=== PATIENT | female | born 1955 | race Two or more races ===

== ENCOUNTER 2017-03-14 01:06 | Inpatient (IN) | payer MEDICAID ==
[~2017-03-14] VITALS: Ht 157.5 cm; Wt 72.6 kg
[2017-03-14] MEDS ORDERED: ONDANSETRON 4 MG/2 ML VIAL IV ONE (01:45)
[2017-03-14] MEDS ORDERED: ASPIRIN 81 MG TAB.CHEW PO ONE (01:45)
[2017-03-14] MEDS ORDERED: MORPHINE SULFATE 2 MG/1 ML DISP.SYRIN IV ONE (01:45)
[2017-03-14] MEDS ORDERED: MORPHINE SULFATE 4 MG/1 ML DISP.SYRIN ONE (01:49)
[2017-03-14] MEDS ORDERED: ONDANSETRON 4 MG/2 ML VIAL ONE (01:49)
[2017-03-14 01:52] LABS: BASOPHILS # (AUTO) 0.2 K/uL (0.0-8.0); BASOPHILS % (AUTO) 1.2 % (0.0-2.0); EOSINOPHILS # (AUTO) 0.3 K/uL (0.0-0.7); EOSINOPHILS % (AUTO) 2.3 % (0.0-7.0); HEMATOCRIT 42.5 % (37-47); HEMOGLOBIN 14.5 G/DL (12.0-16.0); LYMPHOCYTES # (AUTO) 2.9 K/UL (0.8-4.8); LYMPHOCYTES % (AUTO) 23.2 % (20.5-51.5); MEAN CORPUSCULAR HEMOGLOBIN 31.1 UUG (27.0-31.0); MEAN CORPUSCULAR HGB CONC 34 g/dL (32.0-37.0); MEAN CORPUSCULAR VOLUME 91.1 FL (81.0-99.0); MONOCYTES # (AUTO) 0.9 K/UL (0.1-1.30); MONOCYTES % (AUTO) 6.8 % (0.0-11.0); NEUTROPHILS # (AUTO) 8.4 K/UL (1.8-8.9); NEUTROPHILS % (AUTO) 66.5 % (38.5-71.5); PLATELET COUNT (AUTO) 349 K/UL (150-450); RED BLOOD CELL COUNT(AUTO) 4.67 MIL/UL (4.2-5.4); WHITE BLOOD COUNT (AUTO) 12.7 K/UL (4.0-11.2)
[2017-03-14 02:01] LABS: CREATININE 0.9 mg/dL (0.6-1.3); POTASSIUM 3.9 mmol/L (3.5-5.1)
[2017-03-14] MEDS ORDERED: ASPIRIN 81 MG TAB.CHEW ONE (02:01)
[2017-03-14 02:13] LABS: BILIRUBIN,DIRECT 0.1 mg/dL (0.0-0.2); BILIRUBIN,TOTAL 0.4 mg/dL (0.2-1.0); TOTAL PROTEIN, SERUM 8.3 g/dL (6.4-8.2)
[2017-03-14] MEDS ORDERED: AMLO10TA4 PO (02:19)
--- NOTE | 2017-03-14 02:19 | NUR ---
Patient and family member unable to recall home medication at this time. Family will provide medication in AM
--- NOTE | 2017-03-14 03:17 | NUR ---
Per ER MD, Dr Clay, patient is not stable for transfer to [facility] facility [facility]. Jana Coppola notified of issue.
--- NOTE | 2017-03-14 03:20 | NUR ---
AURELIANO BANKS on the phone with Nii Gray NP from [facility].
[2017-03-14] MEDS ORDERED: HYDROCODONE/APAP 5-325MG TABLET PO PRN (03:30)
[2017-03-14] MEDS ORDERED: ACETAMINOPHEN 325 MG TABLET PO PRN (03:30)
[2017-03-14] MEDS ORDERED: MAGNESIUM HYDROXIDE 30 ML LIQUID UDC PO PRN (03:30)
[2017-03-14] MEDS ORDERED: ONDANSETRON 4 MG/2 ML VIAL IV PRN (03:30)
[2017-03-14] MEDS ORDERED: Z GUARD REMEDY PASTE 57 GM TUBE TOP PRN (03:30)
--- NOTE | 2017-03-14 03:41 | NUR ---
Report given to nibbler operator Randa @ 0325. Patient accepted by Nii Gray NP.Oliver Cortes is [facility] PM covering .
[2017-03-14] MEDS ORDERED: MORPHINE SULFATE 2 MG/1 ML DISP.SYRIN IV PRN (03:45)
--- NOTE | 2017-03-14 03:49 | NUR ---
Pt. admitted to Telemetry , under care of Nii Gray NP/Oliver BANKS. Dx: Hypertensive Encephalopathy.Belongs List completed
--- NOTE | 2017-03-14 03:50 | NUR ---
RECEIVED PATIENT FROM ER VIA WHEELCHAIR. FAMILY AT BEDSIDE. USHERED TO ROOM AND PLACED COMFORTABLY ON THE BED. BELONGINGS LIST COMPLETED. TELE LEADS APPLIED. TELE SR AT 70'S. V/S TAKEN WNL. NO ACUTE DISTRESS NOTED. ABLE TO PROVIDE HX WITH NEPHEW AT BEDSIDE. BODY ASSESSMENT DONE. COMPLAINTS OF H/A'S 01/21. WILL REVIEW MEDICATIONS ORDERED. WILL ADMINISTER ORDERED. SAFETY INITIATED. CALL LIGHT WITHIN REACH. INSTRUCTED HOE TO USE CALL LIGHT WHEN IN NEED OF ASSISTANCE. WILL CONTINUE TO MONITOR.
[2017-03-14 04:42] VITALS: BP 151/83
[2017-03-14 05:08] LABS: *BILIRUBIN,URIN NEGATIVE (NEGATIVE); *BLOOD, URINE NEGATIVE (NEGATIVE); *CLARITY,URINE CLEAR (CLEAR); *COLOR,URINE STRAW (YELLOW); *KETONES,URINE NEGATIVE (NEGATIVE); *PROTEIN,URINE NEGATIVE (NEGATIVE); *UROBILINOGEN,URINE 0.2 E.U./dl (NORMAL); LEUKOCYTE ESTERASE ,URINE NEGATIVE (NEGATIVE); NITRITE, URINE NEGATIVE (NEGATIVE); UGLUCOSE NEGATIVE (NEGATIVE)
[2017-03-14 05:14] LABS: BACTERIA,URINE FEW /HPF (NONE SEEN); RBC,URINE 0-3 /HPF (0-3); SQUAMOUS EPITHELIAL CELL,UR FEW /HPF (NONE SEEN); WBC,URINE 0-3 /HPF (0-3)
--- NOTE | 2017-03-14 06:18 | NUR ---
NO CHANGES T/O SHIFT. SAFETY AND COMFORT MEASURES MAINTAINED T/O SHIFT. ALL NEEDS MET.
--- NOTE | 2017-03-14 07:21 | NUR ---
TEXTED DR. SANDRA FOR MRI APPROVAL.
[2017-03-14] MEDS ORDERED: AMLODIPINE 10 MG TABLET PO SCH (09:00)
--- NOTE | 2017-03-14 10:00 | NUR ---
PATIENT SEEN AND EXAMINED BY DR COOLEY WITH ORDERS PATIENT IS FOR MRI TODAY.
--- NOTE | 2017-03-14 10:30 | NUR ---
PER RAY PATIENT IS SCHEDULED FOR MRI AT 1130 TODAY SO PATIENT NEEDED TO FILL OUT THE MRI QUESTIONARE AND SEE THAT SHE IS NOT AFRAID OF SMALL SPACES.PATIENT STATED THAT SHE DOES NOT WANT TO GO BECAUSE SHE IS AFRAID OF COMPACT SPACES SO RAY AT THE MRI NOTIFIED AND LENA BAILON HERE AND AWARE.
--- NOTE | 2017-03-14 10:42 | NUR ---
PATIENT NOW STATED THAT SHE WILL GO FOR THE MRI AFTER SHE SPOKE WITH HER DAUGHTER OVER THE PHONE.SO RAY FROM THE MRI CALLED BY THE SITE SAFETY COORDINATOR AND THE MED RESPONSE AWARE THAT PATIENT IS SCHEDULED FOR 1130 AM TODAY.
[2017-03-14 11:05] LABS: BASOPHILS # (AUTO) 0.1 K/uL (0.0-8.0); BASOPHILS % (AUTO) 0.7 % (0.0-2.0); EOSINOPHILS # (AUTO) 0.2 K/uL (0.0-0.7); EOSINOPHILS % (AUTO) 1.6 % (0.0-7.0); HEMATOCRIT 44.7 % (37-47); LYMPHOCYTES % (AUTO) 15.8 % (20.5-51.5); MEAN CORPUSCULAR HEMOGLOBIN 30.5 UUG (27.0-31.0); MEAN CORPUSCULAR HGB CONC 34 g/dL (32.0-37.0); MEAN CORPUSCULAR VOLUME 91.1 FL (81.0-99.0); MONOCYTES # (AUTO) 0.6 K/UL (0.1-1.30); MONOCYTES % (AUTO) 4.7 % (0.0-11.0); NEUTROPHILS # (AUTO) 9.9 K/UL (1.8-8.9); NEUTROPHILS % (AUTO) 77.2 % (38.5-71.5); PLATELET COUNT (AUTO) 367 K/UL (150-450); RED BLOOD CELL COUNT(AUTO) 4.91 MIL/UL (4.2-5.4); WHITE BLOOD COUNT (AUTO) 12.8 K/UL (4.0-11.2)
[2017-03-14] MEDS ORDERED: LORAZEPAM 2 MG/1 ML VIAL IV ONE (11:15)
[2017-03-14 11:25] LABS: BILIRUBIN,TOTAL 0.5 mg/dL (0.2-1.0); MAGNESIUM 2.5 mg/dL (1.8-2.4); PHOSPHOROUS 4.1 mg/dL (2.5-4.9); POTASSIUM 4.1 mmol/L (3.5-5.1); TOTAL PROTEIN, SERUM 8.4 g/dL (6.4-8.2)
[2017-03-14 11:27] LABS: THYROID STIMULATING HORMONE 2.067 mIU/mL (0.358-3.740)
[2017-03-14 11:38] VITALS: BP 140/78
[2017-03-14] MEDS: hydrALAZINE HCL 10 MG TABLET PO SCH ×2 (11:38→14:00)
--- NOTE | 2017-03-14 11:45 | NUR ---
ATIVAN GIVEN IVP ORDERED AND PATIENT PICKED UP BY MED RESPONSE TO MRI ORDERED.
[2017-03-14 16:19] VITALS: BP 144/80
--- NOTE | 2017-03-14 16:30 | NUR ---
PATIENT RETURNED FROM MRI IN SATISFACTORY CONDITION AWAITING FOR RESULTS IN SATISFACTORY CONDITION.
[2017-03-14] MEDS ORDERED: AMLO10TA2 PO (18:09)
[2017-03-14] MEDS ORDERED: ASPI-618 PO (18:09)
[2017-03-14] MEDS ORDERED: LOSA25TA3 PO (18:09)
[2017-03-14] MEDS ORDERED: ATOR10TA PO (18:09)
--- NOTE | 2017-03-14 18:30 | NUR ---
NEW ORDER RECEIVED TO DISCHARGE PATIENT HOME TODAY AND NOTED PATIENTS DAUGHTER ROSY IS IN THE ROOM AND [employer] REPA[employer]ER SPOKE WITH PATIENTS DAUGHTER WITH INSTRUCTIONS AWAITING FOR DR ZAMAN TO PROVIDE PATIENT WITH PRESCRIPTIONS.
[2017-03-14] MEDS ORDERED: ATORVASTATIN 10 MG TABLET PO SCH (21:00)
[2017-03-15] MEDS ORDERED: LOSARTAN POTASSIUM 25 MG TABLET PO SCH (09:00)
[2017-03-15] MEDS ORDERED: AMLODIPINE 10 MG TABLET PO SCH (09:00)
[2017-03-15] MEDS ORDERED: ASPIRIN EC 81 MG TABLET.DR PO SCH (09:00)
== END 2017-03-14 20:30 | disposition home or self-care (01) | DRG 199 ==
LOC: ER 01:13 → TELE 03:31 → MED 18:37
PROVIDERS: ADMIT Contractor; ATTEND Nurse Practitioner Acute Care
DX: I16.0 Hypertensive urgency (principal); E11.65 Type 2 diabetes mellitus with hyperglycemia; E83.41 Hypermagnesemia; E03.9 Hypothyroidism, unspecified; F32.9 Major depressive disorder, single episode, unspecified; Z88.0 Allergy status to penicillin; E78.5 Hyperlipidemia, unspecified; Z79.82 Long term (current) use of aspirin; Z79.899 Other long term (current) drug therapy; Z82.49 Family history of ischemic heart disease and other diseases of the circulatory system; D72.829 Elevated white blood cell count, unspecified; R93.0 Abnormal findings on diagnostic imaging of skull and head, not elsewhere classified
CPT/HCPCS: 36415; 70030-TC; 70450; 70551; 71010; 83735; 84100; 84443; 85025; 85730; 93005; 93307; A4663; J2270; J2405